=== PATIENT | female | born 1955 | race Caucasian/White ===

== ENCOUNTER → 2021-11-28 09:15 | Outpatient (CLI) | payer MEDICARE, SELFPAY ==
[2021-11-28 23:19] LABS: SARS-CoV-2 RNA PCR Negative
== END ==
PROVIDERS: Visit Provider Internal Medicine
DX: J06.9 Acute upper respiratory infection, unspecified (principal); Z20.822 Contact with and (suspected) exposure to COVID-19
CPT/HCPCS: C9803; U0003; U0005

== ENCOUNTER 2024-01-17 12:48 | Outpatient (CLI) | payer MEDICARE, SELFPAY ==
--- NOTE | 2024-01-17 15:00 | NEURO_ITS ---
Impression: # Complains of numbness of feet. Non-Diabetic. 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 # Clinical correlation recommended. # Needle/EMG exam not requested. Nerve Conduction Studies Anti Sensory Summary Table Stim Site NR Peak (ms) P-T Amp (?V) Site1 Site2 Delta-P (ms) Dist (cm) Arcadio (m/s) Left Saphenous Anti Sensory (Ant Med Mall) 14cm 3.6 2.5 14cm Ant Med Mall 3.6 0.0 Right Saphenous Anti Sensory (Ant Med Mall) NO RESPONSE 14cm NR 14cm Ant Med Mall 0.0 Left Sup Fibular Anti Sensory (Ant Lat Mall) 14 cm 4.0 14.3 14 cm Ant Lat Mall 4.0 16.0 40 Right Sup Fibular Anti Sensory (Ant Lat Mall) NO RESPONSE 14 cm NR 14 cm Ant Lat Mall 16.0 Left Sural Anti Sensory (Lat Mall) Calf 3.5 8.1 Calf Lat Mall 3.5 16.0 46 Right Sural Anti Sensory (Lat Mall) NO RESPONSE Calf NR Calf Lat Mall 16.0 Motor Summary Table Stim Site NR Onset (ms) O-P Amp (mV) Site1 Site2 Delta-0 (ms) Dist (cm) Arcadio (m/s) Left Peroneal Motor (Vastus Med) Ankle 3.1 0.5 Popit Ankle 8.3 40.0 48 Popit 11.4 1.4 Right Peroneal Motor (Vastus Med) Ankle 3.1 2.4 Popit Ankle 8.5 40.0 47 Popit 11.6 1.7 Left Tibial Motor (Abd Lopes Brev) Ankle 3.8 1.8 Knee Ankle 9.6 41.0 43 Knee 13.4 1.3 Right Tibial Motor (Abd Lopes Brev) Ankle 3.8 0.5 Knee Ankle 8.7 41.0 47 Knee 12.5 0.4 F Wave Studies NR F-Lat (ms) L-R F-Lat (ms) Left Peroneal (Mrkrs) (EDB) 57.14 1.42 Right Peroneal (Mrkrs) (EDB) 58.56 1.42 Left Tibial (Mrkrs) (Abd Hallucis) 57.47 0.65 Right Tibial (Mrkrs) (Abd Hallucis) 58.13 0.65 MTDD
== END 2024-01-17 12:49 | disposition home or self-care (01) ==
PROVIDERS: Visit Provider Podiatrist Foot & Ankle Surgery
DX: G64 Other disorders of peripheral nervous system (principal)
CPT/HCPCS: 95911